=== PATIENT | female | born 1995 | race American Indian/Alaskan Native ===

== ENCOUNTER 2021-05-10 03:19 | Emergency (ER) | payer MEDICAID, OTHER | END 2021-05-10 18:41 | disposition left against medical advice (07) | LOC: ED 03:19 | DX: R10.9 Unspecified abdominal pain (principal); R06.02 Shortness of breath; Z53.21 Procedure and treatment not carried out due to patient leaving prior to being seen by health care provider ==

== ENCOUNTER 2021-09-18 11:33 | Emergency (ER) | payer MEDICAID ==
[2021-09-18 12:50] LABS: Basophils # (Auto) 0.1 K/mm3 (0.0-0.1); Basophils % (Auto) 0.4 % (0.0-1.8); Eosinophils % (Auto) 0.1 % (0.0-4.3); Hematocrit 38.5 % (30.3-42.9); Hemoglobin 13.2 gm/dl (10.1-14.3); Lymphocytes # (Auto) 0.6 K/mm3 (1.2-5.4); Lymphocytes % (Auto) 4.7 % (13.4-35.0); Mean Corpuscular HGB Conc 34 % (30-34); Mean Corpuscular Volume 96 fl (79-97); Monocytes % (Auto) 8.4 % (0.0-7.3); Platelet Count 201 K/mm3 (140-440); Red Blood Count 4.01 M/mm3 (3.65-5.03); Red Cell Distribution Width 12.8 % (13.2-15.2)
[2021-09-18 13:05] LABS: Alanine Aminotransferase 5 units/L (7-56); Albumin 4.3 g/dL (3.9-5); BUN/Creatinine Ratio 15; Blood Urea Nitrogen 12 mg/dL (7-17); Calcium 9.4 mg/dL (8.4-10.2); Hemolysis Index 4
[2021-09-18 14:19] LABS: Color,Urine Yellow (Yellow)
[2021-09-18 14:21] LABS: Bilirubin,Urine Small (Negative)
[2021-09-18 14:22] LABS: Blood,Urine Large (Negative); PH,Urine 6.5 (5.0-7.0); Urobilinogen,Urine < 2.0 mg/dL (<2.0)
[2021-09-18 14:24] LABS: HCG Qualitative,Urine Positive (Negative)
[2021-09-18] MEDS ORDERED: cefTRIAXone/NS 1 GM/50 ML 1 GM/50 ML BAG IV ONE (14:37)
[2021-09-18] MEDS ORDERED: ACETAMINOPHEN 500 MG TAB PO ONE (14:38)
[2021-09-18] MEDS ORDERED: ONDANSETRON 4 MG ODT TAB PO ONE (14:38)
[2021-09-18 14:42] LABS: Bacteria,Urine 3+ /HPF (Negative); Mucus,Urine 3+ /HPF
[2021-09-18 14:48] LABS: Ictotest,Urine Negative (Negative)
[2021-09-18 14:58] LABS: WBC,Urine > 182.0 /HPF (0.0-6.0)
[2021-09-18] MEDS ORDERED: SODIUM CHLORIDE 0.9% 1000 ML 1,000 ML IV ONE (15:35)
--- NOTE | 2021-09-18 17:08 | Emergency Department Report ---
ED Abdominal Pain HPI - General Chief Complaint: Abdominal Pain Stated Complaint: CP/BACK PAIN/VOMITING Source: patient Mode of arrival: Ambulatory Limitations: No Limitations - History of Present Illness Initial Comments: Patient is a 26-year-old -[place] female who is a A4 and with no past medical history presents to the ED with complaint of acute onset persistent diffuse body aches and pains, diffuse abdominal pain, diffuse back pain, nausea, vomiting, fever and chills and headache for the last 5 days. Patient states that in the last 2 days she has not been able to keep anything down because of intractable nausea and vomiting. Patient also stated that she had an elective 2 months ago. Patient denies dizziness, syncope, chest pain and shortness of breath, headache, vaginal discharge, vaginal bleeding, traumatic injury or fall, heavy lifting, cough, nasal and sinus congestion and sore throat. MD Complaint: abdominal pain (diffuse), flank pain (bilateral), other (nausea, vomiting, diffuse back pain; fever and chills) -: Sudden, days(s) (5) Location: diffuse Migration to: no migration Severity: severe Severity scale (0 -10): 9 Quality: cramping, aching, sharp Consistency: constant Improves With: nothing Context: possible food poisoning Associated Symptoms: nausea, vomiting. denies: denies other symptoms, diarrhea, fever, chills, constipation, hematemesis, hematochezia, melena, hematuria, anorexia, syncope - Related Data Previous Rx's Medication Instructions Recorded Last Taken Type Ibuprofen [Motrin] 800 mg PO Q8HR PRN #60 tablet 02/10/16 Unknown Rx oxyCODONE /ACETAMINOPHEN [Percocet 1 tab PO Q6HR PRN #30 tablet 02/10/16 Unknown Rx 5/325] Acetaminophen [Tylenol] 500 mg PO Q6HR PRN #40 tablet 09/18/21 Unknown Rx Famotidine [Pepcid] 20 mg PO BID #60 tablet 09/18/21 Unknown Rx Promethazine [Phenergan] 25 mg PO Q6HR PRN #30 tab 09/18/21 Unknown Rx cephALEXin [Keflex] 500 mg PO Q6HR #40 capsule 09/18/21 Unknown Rx Allergies Allergy/AdvReac Type Severity Reaction Status Date / Time No Known Allergies Allergy Unverified 02/10/16 08:46 ED Review of Systems ROS: Stated complaint: CP/BACK PAIN/VOMITING Other details as noted in HPI Constitutional: chills, fever, malaise Eyes: denies: eye pain, eye discharge, vision change ENT: denies: ear pain, throat pain Respiratory: denies: cough, shortness of breath, wheezing Cardiovascular: denies: chest pain, palpitations Endocrine: no symptoms reported Gastrointestinal: abdominal pain, nausea, vomiting. denies: diarrhea Genitourinary: denies: urgency, dysuria, discharge Musculoskeletal: back pain, arthralgia, myalgia. denies: joint swelling Skin: denies: rash, lesions Neurological: headache. denies: weakness, paresthesias Psychiatric: denies: anxiety, depression Hematological/Lymphatic: denies: easy bleeding, easy bruising ED Past Medical Hx - Past Medical History Hx Hypertension: No Additional medical history: anxiety, anemia, D&C - Surgical History Past Surgical History?: No - Social History Smoking Status: Never Smoker - Medications Home Medications: Home Medications Medication Instructions Recorded Confirmed Last Taken Type Ibuprofen [Motrin] 800 mg PO Q8HR PRN #60 tablet 02/10/16 Unknown Rx oxyCODONE /ACETAMINOPHEN [Percocet 1 tab PO Q6HR PRN #30 tablet 02/10/16 Unknown Rx 5/325] Acetaminophen [Tylenol] 500 mg PO Q6HR PRN #40 tablet 09/18/21 Unknown Rx Famotidine [Pepcid] 20 mg PO BID #60 tablet 09/18/21 Unknown Rx Promethazine [Phenergan] 25 mg PO Q6HR PRN #30 tab 09/18/21 Unknown Rx cephALEXin [Keflex] 500 mg PO Q6HR #40 capsule 09/18/21 Unknown Rx ED Physical Exam - General Limitations: No Limitations General appearance: alert, in no apparent distress - Head Head exam: Present: atraumatic, normocephalic, normal inspection - Eye Eye exam: Present: normal appearance, PERRL, EOMI Pupils: Present: normal accommodation - ENT ENT exam: Present: normal exam, normal orophraynx, mucous membranes moist, TM's normal bilaterally, normal external ear exam - Neck Neck exam: Present: normal inspection, full ROM. Absent: tenderness - Respiratory Respiratory exam: Present: normal lung sounds bilaterally. Absent: respiratory distress, wheezes, rales, rhonchi, chest wall tenderness, accessory muscle use, decreased breath sounds - Cardiovascular Cardiovascular Exam: Present: regular rate, normal rhythm, normal heart sounds. Absent: systolic murmur, diastolic murmur, rubs, gallop - GI/Abdominal GI/Abdominal exam: Present: soft, tenderness (Palpable diffuse abdominal te nderness), normal bowel sounds. Absent: guarding, rebound, hyperactive bowel sounds, hypoactive bowel sounds, mass - Extremities Exam Extremities exam: Present: normal inspection, full ROM, normal capillary refill - Back Exam Back exam: Present: normal inspection, full ROM, tenderness (Palpable diffuse posterior thoracic and lumbosacral paraspinal musculoskeletal tenderness), muscle spasm, paraspinal tenderness. Absent: CVA tenderness (R), CVA tenderness (L) - Neurological Exam Neurological exam: Present: alert, oriented X3, CN II-XII intact, normal gait, reflexes normal - Psychiatric Psychiatric exam: Present: normal affect, normal mood - Skin Skin exam: Present: warm, dry, intact, normal color. Absent: rash ED Course Vital Signs 09/18/21 09/18/21 11:54 17:42 Temperature 100.9 F H 99.5 F Pulse Rate 97 H 73 Respiratory 14 16 Rate Blood Pressure 130/69 Blood Pressure 99/50 [Right] O2 Sat by Pulse 99 100 Oximetry ED Medical Decision Making - Lab Data Result diagrams: 09/18/21 12:17 09/18/21 12:17 - Medical Decision Making This is a 26-year-old -[place] female who is a A4 and with no past medical history presents to the ED with complaint of acute onset persistent diffuse body aches and pains, diffuse abdominal pain, diffuse back pain, nausea, vomiting, fever and chills and headache for the last 5 days. Patient states that in the last 2 days she has not been able to keep anything down because of intractable nausea and vomiting. Patient also stated that she had an elective 2 months ago. In the ED, patient is alert and oriented x3 and is not in any distress but febrile in triage. Patient was treated in the ED for fever, patient also received normal saline 1 L IV bolus x1. Patient also received antiemetics and antacids and pain medications. Lab test results were reviewed and showed acute leukocytosis of 11,800, hCG quant of 5.22 which is a positive , and significant urinary tract infection in the urinalysis. Patient also received Rocephin 1 g IV x1. On reevaluation, patient's pain is well controlled medication. Patient's nausea also well controlled in the ED. Patient was therefore discharged home on antibiotics and pain medications as well as antiemetics and advised to follow-up with her [facility] physician in 7 to 10 days for reevaluation or return to the ED immediately if symptoms get worse. - Differential Diagnosis UTI; pyelonephritis; ovarian cyst; influenza; COVID-19; dehydration; Critical care attestation.: If time is entered above; I have spent that time in minutes in the direct care of this critically ill patient, excluding procedure time. ED Disposition Clinical Impression: test-positive, Intractable nausea and vomiting, Abdominal pain, acute, generalized, Acute urinary tract infection Disposition: 01 HOME / SELF CARE / HOMELESS Is pt being admited?: No Does the pt Need Aspirin: No Condition: Stable Instructions: Nausea and Vomiting, Adult, [id number], Urinary Tract Infection, Adult, [id number], Abdominal Pain, Adult, [id number], Flank Pain, Adult, [id number], Abdominal Pain (ED) Additional Instructions: Take medication with food, drink plenty of fluids, follow-up with your primary care physician or [facility] physician in 7 to 10 days for reevaluation. Return to the ED immediately if symptoms get worse. Prescriptions: Acetaminophen [Tylenol] 500 mg PO Q6HR PRN #40 tablet PRN Reason: Pain , Severe (7-10) cephALEXin [Keflex] 500 mg PO Q6HR #40 capsule Famotidine [Pepcid] 20 mg PO BID #60 tablet Promethazine [Phenergan] 25 mg PO Q6HR PRN #30 tab PRN Reason: Nausea Referrals: FIDEL HICKS MD [Staff Physician] - 3-5 Days [facility] [Provider Group] - 3-5 Days Forms: Work/School Release Form(ED) Time of Disposition: 17:11 Print Language: THAI
[2021-09-18 17:44] VITALS: BP 99/50
== END 2021-09-18 18:08 | disposition home or self-care (01) ==
LOC: ED 11:33
DX: O21.9 Vomiting of pregnancy, unspecified (principal); O26.899 Other specified pregnancy related conditions, unspecified trimester; O23.40 Unspecified infection of urinary tract in pregnancy, unspecified trimester; Z32.01 Encounter for pregnancy test, result positive; R10.9 Unspecified abdominal pain
CPT/HCPCS: 36415; 80053; 81001; 81025; 83690; 84702; 85025; 96365; 99283; J0696; J7030; 96375; J3490; Q0162